=== PATIENT | male | born 1950 | race Caucasian/White ===

== ENCOUNTER 2018-05-09 18:32 | Emergency (ER) | payer BC, MEDICAID ==
[~2018-05-09] VITALS: Ht 167.6 cm; Wt 79.4 kg
[2018-05-09 19:24] VITALS: BP 130/68
--- NOTE | 2018-05-09 21:14 | NUR ---
PT AMBULATED TO ED BED 06.
--- NOTE | 2018-05-09 21:30 | NUR ---
PT BIB SELF C/O PRODUCTIVE COUGH X2 WEEKS. PT REPORTS ACHY PAIN WITH COUGH AT 8/10 AND BODYACHES. RR SYMETRICAL, NON-LABORED. ER MD TO SEE PT. MEDHX: HTN, HLD, DM
[2018-05-09] MEDS ORDERED: KETOROLAC 60 MG/2 ML VIAL IM ONE (21:50)
[2018-05-09 22:10] VITALS: BP 120/80
--- NOTE | 2018-05-09 22:10 | NUR ---
Patient discharged with v/s stable. Written and verbal after care instructions given and explained. Patient alert, oriented and verbalized understanding of instructions. Ambulatory with steady gait. All questions addressed prior to discharge. ID band removed. Patient advised to follow up with PMD. Rx of PROMETHAZINE AND MOTRIN given. Patient educated on indication of medication including possible reaction and side effects. Opportunity to ask questions provided and answered.
== END 2018-05-09 22:10 | disposition home or self-care (01) ==
LOC: MED 18:32
DX: J06.9 Acute upper respiratory infection, unspecified (principal); I10 Essential (primary) hypertension; E11.9 Type 2 diabetes mellitus without complications
CPT/HCPCS: 87804; 96372; 99283; J1885